=== PATIENT | female | born 1980 | race Caucasian/White ===

== ENCOUNTER 2017-07-28 07:00 | Emergency (ER) | payer OTHER, SELFPAY ==
[~2017-07-28] VITALS: Ht 165.1 cm; Wt 54.4 kg
[2017-07-28] MEDS ORDERED: NKM (07:12)
--- NOTE | 2017-07-28 07:34 | Emergency Room Report ---
History of Present Illness General Chief Complaint: Medical Clearance Source: Patient Present Illness HPI Patient is a 37-year-old female who presented after increased flank pain. Patient reported having some sensation that she feels dehydrated. Patient denies any vomiting or diarrhea. Patient denies feeling lightheaded. Patient states that she had been urinating normally.Patient is brought in by live ammunition inspector custody.Patient denies any fever. Allergies: Coded Allergies: No Known Allergies (Unverified , 07/28/17) Patient History Last Menstrual Period: 1 week ago Reviewed Nursing Documentation: PMH: Agreed, PSxH: Agreed Review of Systems All Other Systems: negative except mentioned in HPI Physical Exam Vital Signs Date Time Temp Pulse Resp B/P (MAP) Pulse Ox O2 Delivery O2 Flow Rate FiO2 07/28/17 07:12 98.6 86 18 131/70 97 Room Air 98.6 Sp02 EP Interpretation: reviewed, normal General Appearance: normal inspection, well appearing, no apparent distress, alert, GCS 15 Head: atraumatic ENT: normal ENT inspection, hearing grossly normal, normal voice Neck: normal inspection, full range of motion, supple, no bony tend Respiratory: normal inspection, lungs clear, normal breath sounds, no respiratory distress, no retraction, no wheezing Cardiovascular #1: regular rate, rhythm, no edema Gastrointestinal: normal inspection, normal bowel sounds, non tender, soft, no guarding, no hernia Genitourinary: no CVA tenderness Musculoskeletal: normal inspection, back normal, normal range of motion Neurologic: normal inspection, alert, oriented x3, responsive, program aide group work III-XII nml as tested, speech normal Psychiatric: normal inspection, judgement/insight normal, mood/affect normal Skin: normal inspection, normal color, no rash Medical Decision Making Diagnostic Impression: Primary Impression: Mild dehydration ER Course Patient presented for flank pain. Differential diagnosis included was not limited to pneumonia, renal stone, rib fracture, pulmonary embolism, ulcer, enteritis, pyelonephritis among others. Patient has a benign exam and does not appear to require any further imaging or laboratory testing at this time. Patient was able to tolerate oral fluids. Patient was medically cleared for booking. The patient is advised to follow up with primary care doctor in 1-2 days. Patient is advised to return if any worsening condition or if any changes in status that are concerning. This report is dictated with [email or web address] career development associate software which may occasionally lead to discrepancies related to use of this software. Labs Test 07/28/17 07:55 Urine Color Yellow Urine Appearance Clear Urine pH 6 (4.5-8.0) Urine Specific [place] 1.010 (1.005-1.035) Urine Protein Negative (NEGATIVE) Urine Glucose (UA) Negative (NEGATIVE) Urine Ketones 2+ (NEGATIVE) Urine Occult Blood Negative (NEGATIVE) Urine Nitrite Negative (NEGATIVE) Urine Bilirubin Negative (NEGATIVE) Urine Urobilinogen Normal MG/DL (0.0-1.0) Urine Leukocyte Esterase Negative (NEGATIVE) Urine HCG, Qualitative Negative (NEGATIVE) Last Vital Signs Date Time Temp Pulse Resp B/P (MAP) Pulse Ox O2 Delivery O2 Flow Rate FiO2 07/28/17 07:12 98.6 86 18 131/70 97 Room Air 98.6 Status: improved Disposition: HOME, SELF-CARE Condition: Stable Tobin Noe Jul 28, 2017 07:34
[2017-07-28 07:39] VITALS: BP 131/70
[2017-07-28 07:48] VITALS: BP_SYST 131; BP_SYST 136; BP_DIAS 59; BP_DIAS 79
[2017-07-28 08:29] LABS: APPEARANCE,URINE CLEAR; BILIRUBIN, URINE NEGATIVE (NEGATIVE); GLUCOSE, URINE (UA) NEGATIVE (NEGATIVE); KETONES,URINE 2+ (NEGATIVE); LEUKOCYTE ESTERASE ,URINE NEGATIVE (NEGATIVE); NITRITE,URINE NEGATIVE (NEGATIVE); PH,URINE 6 (4.5-8.0); PROTEIN,URINE NEGATIVE (NEGATIVE); UROBILINOGEN,URINE NORMAL MG/DL (0.0-1.0)
[2017-07-28 08:31] LABS: COLOR,URINE YELLOW
[2017-07-28 08:45] VITALS: BP 131/79
== END 2017-07-28 08:56 ==
LOC: EMR 07:17
DX: E86.0 Dehydration (principal); R10.9 Unspecified abdominal pain
CPT/HCPCS: 81003; 81025; 99282